=== PATIENT | male | born 2000 ===

== ENCOUNTER 2020-07-10 14:25 | Emergency (ER) | payer OTHER ==
[~2020-07-10] VITALS: Ht 175.3 cm; Wt 70.3 kg
== END 2020-07-10 17:48 | disposition home or self-care (01) ==
LOC: EMR PED 14:25
DX: L03.114 Cellulitis of left upper limb (principal); T65.894A Toxic effect of other specified substances, undetermined, initial encounter; R60.0 Localized edema; Y92.89 Other specified places as the place of occurrence of the external cause; Z03.818 Encounter for observation for suspected exposure to other biological agents ruled out